=== PATIENT | female | born 1980 | race Caucasian/White ===

== ENCOUNTER 2019-02-16 19:14 | Emergency (ER) | payer BC ==
[2019-02-16 19:32] VITALS: BMI 33.7
[2019-02-16 19:40] VITALS: TEMP 98.4
--- NOTE | 2019-02-16 20:43 | ED PDOC ---
Arrival/HPI - General Chief Complaint: Abnormal Skin Integrity Time Seen by Provider: 02/16/19 20:26 - History of Present Illness Narrative History of Present Illness (Text): 02/16/19 20:34 38 f with no significant pmhx presents to the ED for evaluation of generalized itchy rash for the past several days, no abnormal throat sensation, no dyspnea, no wheezing, no abdominal cramping. Patient saw pcp and was prescribed several medications. with no improvement. Past Medical History - Infectious Disease Hx of Infectious Diseases: None - Psychiatric Hx Substance Use: No Family/Social History Family/Social History: No Known Family HX Smoking Status: Never Smoked Hx Alcohol Use: Yes Frequency of alcohol use: Socially Hx Substance Use: No Allergies/Home Meds Allergies/Adverse Reactions: Allergies kiwi Allergy (Verified 02/16/19 19:33) SWELLING Home Medications: Home Meds Medication Instructions Recorded Confirmed Methylprednisolone [Medrol Dose 4 mg PO DAILY 02/16/19 02/16/19 Pack (21 tabs)] Mometasone Furoate 1 appful TOP DAILY 02/16/19 02/16/19 Montelukast [Singulair] 10 mg PO DAILY 02/16/19 02/16/19 Ranitidine HCl [Acid [employer] Sales Consultant] 150 mg PO DAILY 02/16/19 02/16/19 hydrOXYzine Pamoate [Vistaril] 50 mg PO DAILY 02/16/19 02/16/19 Review of Systems - Physician Review All systems were reviewed & negative as marked: Yes Physical Exam - Physical Exam Narrative Physical Exam (Text): 02/16/19 20:43 Gen: VS reviewed, alert, well developed, well nourished, nontoxic, mild distress Eye: EOMI, PERRL Neck: no JVD, supple, no adenopathy CV: regular rate, regular rhythm, no rubs,no murmur, S1, S2 Pulm: no distress, clear to auscultation, no wheeze, no rhonchi, breath sounds equal, no rales Abd: soft, nontender, no guarding, no rebound, no rigidity Ext: no edema Skin: good color, no cyanosis, there is a generalized red blanching red rash on the back, chest, arms and legs, isolated in patches, with associated urticaria, all lesions nontender Psych: responds appropriately to questions, normal affect Neuro: oriented x3, CN2-12 intact grossly, motor intact, sensation intact Vital Signs Temp Pulse Resp BP Pulse Ox 02/16/19 19:38 98.4 F 96 H 17 155/90 H 98 Medical Decision Making ED Course and Treatment: 02/16/19 20:44 Patient seen for generalized rash typical for urticaria. Patient reports starting a keto diet. Will check labs. 02/16/19 20:44 02/16/19 20:45 pulse ox 98% on RA and is WNL 02/16/19 23:45 incidental hyperglycemia without metabolic disturbance, would still prefer to tx with systemic corticosteroids as the rash is extensive but will maintain a lower dosing regimen. patient understands and agreeable to plan and will follow up with pcp for further tx of presumed tx of diabetes. Disposition/Present on Arrival - Present on Arrival Any Indicators Present on Arrival: No History of DVT/PE: No History of Uncontrolled Diabetes: No Urinary Catheter: No History of Decub. Ulcer: No History Surgical Site Infection Following: None - Disposition Have Diagnosis and Disposition been Completed?: Yes Diagnosis: Urticaria, Hyperglycemia Disposition: HOME/ ROUTINE Disposition Time: 23:48 Patient Plan: Discharge Condition: STABLE Discharge Instructions (ExitCare): Hyperglycemia, Adult (DC), Hives (DC) Additional Instructions: follow up with your primary care doctor for further treatment of your high blood sugar. it is presumed that you have diabetes and you will likely need treatment. Referrals: Tasneem Beaulieu MD [Primary Care Provider] - Follow up with primary Forms: [employer] (Bhutanese)
[2019-02-16 21:17] LABS: ALB/GLOB RATIO 1.1 (1.1-1.8); ALBUMIN 4.1 g/dL (3.0-4.8); ALT/SGPT 20 U/L (7-56); AST/SGOT 22 U/L (14-36); BLOOD UREA NITROGEN 22 mg/dL (7-21); CALCIUM 8.9 mg/dL (8.4-10.5); GFR NON-AFRICAN AMERICAN > 60
[2019-02-16 21:22] VITALS: RESP 16
[2019-02-16] MEDS ORDERED: Insulin Regular 1 UNITS/0.01 ML ML IVP STA (21:55)
[2019-02-16] MEDS ORDERED: Sodium Chloride 0.9% 1,000 ML IV STA (21:55)
[2019-02-16 23:32] VITALS: BP 130/37; PULSE 71; O2SAT 99
== END 2019-02-16 23:58 | disposition home or self-care (01) ==
LOC: ED 19:14
DX: L50.9 Urticaria, unspecified (principal); R73.9 Hyperglycemia, unspecified
CPT/HCPCS: 80053; 81025; 96374; 99284; J7030